=== PATIENT | female | born 1985 | race Caucasian/White ===

== ENCOUNTER → 2023-06-13 11:07 | Outpatient (REF) | payer BC, SELFPAY | LOC: HWRAD 11:07 | PROVIDERS: ATTENDING PHYSICIAN Obstetrics & Gynecology | DX: N93.9 Abnormal uterine and vaginal bleeding, unspecified (principal); N94.10 Unspecified dyspareunia; K59.00 Constipation, unspecified; D21.9 Benign neoplasm of connective and other soft tissue, unspecified | CPT/HCPCS: 76830; 76856 ==

== ENCOUNTER → 2024-05-01 13:28 | Outpatient (REF) | payer BC, SELFPAY | LOC: HWRAD 13:28 | PROVIDERS: ATTENDING PHYSICIAN Obstetrics & Gynecology | DX: O03.9 Complete or unspecified spontaneous abortion without complication (principal) | CPT/HCPCS: 76830; 76856 ==